=== PATIENT | male | born 1985 | race Caucasian/White ===

== ENCOUNTER 2018-07-19 10:39 | Emergency (ER) | payer SELFPAY ==
[~2018-07-19] VITALS: Ht 172.7 cm; Wt 81.8 kg
[~2018-07-19 10:39] MED LIST: ARIP15TA2 PO; DIPH50 PO
[2018-07-19 11:11] VITALS: BP 134/89
== END 2018-07-19 11:36 | disposition home or self-care (01) ==
LOC: EMS 10:41
DX: K64.4 Residual hemorrhoidal skin tags (principal); F31.9 Bipolar disorder, unspecified; F17.210 Nicotine dependence, cigarettes, uncomplicated; F12.90 Cannabis use, unspecified, uncomplicated; F19.90 Other psychoactive substance use, unspecified, uncomplicated

== ENCOUNTER 2019-08-03 12:03 | Inpatient (IN) | payer MEDICAID ==
[~2019-08-03] VITALS: Ht 185.4 cm; Wt 90.0 kg
[~2019-08-03 12:03] MED LIST changes: -ARIP15TA2 PO; +BENZ1TAB10 PO; +DIPH25 PO; -DIPH50 PO; +MIRT-89 PO
[2019-08-03 16:50] VITALS: BP 107/98
[2019-08-03] MEDS ORDERED: INFLUENZA VIRUS VACCINE QVS 2019-20 (3YR+)/PF 60 MCG/0.5 ML SYRINGE IM ONE (17:45)
[2019-08-03] MEDS: HALOPERIDOL 5 MG TABLET PO PRN (18:04)
[2019-08-03] MEDS: LORazepam 2 MG TABLET PO PRN (18:05)
[2019-08-03] MEDS: ZOLPIDEM TARTRATE 10 MG TABLET PO PRN (21:29)
[2019-08-04 05:52] VITALS: BP 105/89
[2019-08-04 08:11] VITALS: BP 110/60
[2019-08-04] MEDS ORDERED: DOCUSATE SODIUM 100 MG CAPSULE PO PRN (11:45)
[2019-08-04] MEDS ORDERED: PETROLATUM,WHITE 28 GM JELLY TP PRN (11:45)
[2019-08-04] MEDS ORDERED: MAG HYDROX/AL HYDROX/SIMETH ES 30 ML SUSPENSION UDCUP PO PRN (11:45)
[2019-08-04] MEDS ORDERED: ACETAMINOPHEN 325 MG TABLET PO PRN (11:45)
[2019-08-04] MEDS ORDERED: LOPERAMIDE HCL 2 MG CAPSULE PO PRN (11:45)
[2019-08-04] MEDS ORDERED: CloNIDine HCL 0.1 MG TABLET PO PRN (11:45)
[2019-08-04] MEDS ORDERED: GuaiFENesin/D-METHORPHAN [SUGAR-FREE] 200-20MG/10 ML SYRUP UDCUP PO PRN (11:45)
[2019-08-04] MEDS ORDERED: NICOTINE 14 MG/24 HOUR PATCH TD PRN (11:45)
[2019-08-04] MEDS ORDERED: MAGNESIUM HYDROXIDE SUSPENSION 30 ML UDCUP PO PRN (11:45)
[2019-08-04] MEDS ORDERED: IBUPROFEN 400 MG TABLET PO PRN (11:45)
[2019-08-04] MEDS ORDERED: ONDANSETRON HCL 4 MG TABLET PO PRN (11:45)
[2019-08-04] MEDS ORDERED: ALBUTEROL SULFATE HFA 90 MCG/PUFF 8 GM INHALER IH PRN (11:45)
[2019-08-04] MEDS: ARIPiprazole 10 MG TABLET PO SCH (14:11)
[2019-08-04 16:09] VITALS: BP 115/69
[2019-08-04] MEDS: HALOPERIDOL 5 MG TABLET PO PRN (16:22)
[2019-08-04] MEDS: LORazepam 2 MG TABLET PO PRN (16:22)
[2019-08-04] MEDS: DiphenhydrAMINE HCL 25 MG CAPSULE PO SCH (20:42)
[2019-08-04] MEDS: ZOLPIDEM TARTRATE 10 MG TABLET PO PRN (20:42)
[2019-08-05 06:30] VITALS: BP 113/67
[2019-08-05 08:02] LABS: BASOPHILS % (AUTO) 0.3 % (0.0-2.0); EOSINOPHILS % (AUTO) 0.7 % (1.0-6.0); HEMATOCRIT 47.2 % (41-53); HEMOGLOBIN 15.8 g/dL (13.5-17.5); LYMPHOCYTES # (AUTO) 1.4 K/uL (1.0-4.8); LYMPHOCYTES % (AUTO) 16.6 % (22.0-44.0); MEAN CORPUSCULAR HEMOGLOBIN 29.3 pg (26.0-34.0); MEAN CORPUSCULAR HGB CONC 33.4 G/dL (31.0-37.0); MEAN CORPUSCULAR VOLUME 88 fL (80-100); MONOCYTES # (AUTO) 0.6 K/uL (0.1-1.0); MONOCYTES % (AUTO) 7.4 % (2.0-9.0); NEUTROPHILS # (AUTO) 6.3 K/uL (1.8-7.7); PLATELET COUNT (AUTO) 259 K/uL (150-450); RED BLOOD CELL COUNT(AUTO) 5.37 MIL/uL (4.50-5.90); RED CELL DISTRIBUTION WIDTH 14.1 % (11.5-14.5)
[2019-08-05 09:04] LABS: ANION GAP 9 mmol/L (8-16); CARBON DIOXIDE 28 mmol/L (22-29); CHLORIDE 105 mmol/L (98-107); CREATININE 0.79 mg/dL (0.60-1.30); GLUCOSE,RANDOM 87 mg/dL (70-110); POTASSIUM 4.6 mmol/L (3.5-5.1); SODIUM SERUM 142 mmol/L (136-145); UREA NITROGEN, BLOOD 17 mg/dL (7-18)
[2019-08-05 09:05] LABS: ALANINE AMINOTRANSFERASE 41 U/L (12-78); ALBUMIN 4.2 g/dL (3.4-5.0); ALKALINE PHOSPHATASE 87 U/L (46-116); ASPARTATE AMINOTRANSFERASE 21 U/L (15-37); BILIRUBIN,TOTAL 0.3 mg/dL (0.1-1.0); CALCIUM, TOTAL 9.4 mg/dL (8.8-10.5); CHOL/HDL RATIO 4.4 (4.2-7.3); CHOLESTEROL 189 mg/dL (131-200); FREE T4 (FREE THYROXINE) 0.72 ng/dL (0.76-1.46); GLOMERULAR FILTR. RATE CALC > 60 mL/min (>60); HDL CHOLESTEROL 43 mg/dL (40-60); LDL CHOL (CALC.) 133 mg/dL (0-130); THYROID STIMULATING HORMONE 0.84 uIU/mL (0.36-3.74); TOTAL PROTEIN, SERUM 7.5 g/dL (6.4-8.2); TRIGLYCERIDES 66 mg/dL (15-150)
[2019-08-05] MEDS: BENZTROPINE MESYLATE 1 MG TABLET PO SCH ×2 (09:11→20:38)
[2019-08-05] MEDS: ARIPiprazole 10 MG TABLET PO SCH (09:11)
[2019-08-05] MEDS: HALOPERIDOL 5 MG TABLET PO PRN ×2 (12:13→20:38)
[2019-08-05] MEDS: LORazepam 2 MG TABLET PO PRN ×2 (12:13→20:38)
[2019-08-05 16:13] VITALS: BP 126/77
[2019-08-05] MEDS: DiphenhydrAMINE HCL 25 MG CAPSULE PO SCH (20:38)
[2019-08-06 06:22] VITALS: BP 122/85
[2019-08-06] MEDS: BENZTROPINE MESYLATE 1 MG TABLET PO SCH ×2 (09:26→21:13)
[2019-08-06] MEDS: ARIPiprazole 10 MG TABLET PO SCH (09:26)
[2019-08-06 09:31] VITALS: BP 102/80
[2019-08-06 16:51] VITALS: BP 139/80
[2019-08-06] MEDS: LORazepam 2 MG TABLET PO PRN (17:32)
[2019-08-06] MEDS: ZOLPIDEM TARTRATE 10 MG TABLET PO PRN (21:13)
[2019-08-06] MEDS: DiphenhydrAMINE HCL 25 MG CAPSULE PO SCH (21:13)
[2019-08-07 06:20] VITALS: BP 126/79
[2019-08-07] MEDS: BENZTROPINE MESYLATE 1 MG TABLET PO SCH ×2 (08:11→20:07)
[2019-08-07] MEDS: ARIPiprazole 10 MG TABLET PO SCH (08:11)
[2019-08-07 08:30] VITALS: BP 131/72
[2019-08-07 16:13] VITALS: BP 132/90
[2019-08-07] MEDS: LORazepam 2 MG TABLET PO PRN (17:48)
[2019-08-07] MEDS: DiphenhydrAMINE HCL 25 MG CAPSULE PO SCH (20:07)
[2019-08-07] MEDS: ZOLPIDEM TARTRATE 10 MG TABLET PO PRN (20:07)
[2019-08-08 05:35] VITALS: BP 128/76
[2019-08-08 08:06] VITALS: BP 122/66
[2019-08-08] MEDS: ARIPiprazole 10 MG TABLET PO SCH (08:30)
[2019-08-08] MEDS: BENZTROPINE MESYLATE 1 MG TABLET PO SCH ×2 (08:30→21:24)
[2019-08-08 16:08] VITALS: BP 143/74
[2019-08-08] MEDS: LORazepam 2 MG TABLET PO PRN (17:44)
[2019-08-08] MEDS: HALOPERIDOL 5 MG TABLET PO PRN (17:44)
[2019-08-08] MEDS: DiphenhydrAMINE HCL 25 MG CAPSULE PO SCH (21:24)
[2019-08-09 06:36] VITALS: BP 135/79
[2019-08-09 08:29] LABS: APPEARANCE,URINE CLEAR (CLEAR); BILIRUBIN,URINE NEGATIVE (NEGATIVE); GLUCOSE, URINE (UA) NEGATIVE (NEGATIVE); KETONES,URINE NEGATIVE (NEGATIVE); LEUKOCYTE ESTERASE ,URINE NEGATIVE (NEGATIVE); NITRATE,URINE NEGATIVE (NEGATIVE); OCCULT BLOOD,URINE NEGATIVE (NEGATIVE); PROTEIN,URINE NEGATIVE (NEGATIVE); UROBILINOGEN,URINE 0.2 mg/dL (<=1.0)
[2019-08-09] MEDS: ARIPiprazole 10 MG TABLET PO SCH (08:31)
[2019-08-09] MEDS: BENZTROPINE MESYLATE 1 MG TABLET PO SCH ×2 (08:31→20:55)
[2019-08-09 08:35] VITALS: BP 131/83
[2019-08-09 08:41] LABS: AMPHET/METH SCREEN,URINE NEGATIVE (NEGATIVE); BARBITURATE SCREEN, URINE NEGATIVE (NEGATIVE); BENZODIAZEPINES SCREEN,URINE NEGATIVE (NEGATIVE); CANNABINOID SCREEN,URINE NEGATIVE (NEGATIVE); COCAINE SCREEN,URINE NEGATIVE (NEGATIVE); METHADONE SCREEN, URINE NEGATIVE (NEGATIVE); OPIATE SCREEN,URINE NEGATIVE (NEGATIVE)
[2019-08-09 08:42] LABS: PHENCYCLIDINE SCREEN,URINE NEGATIVE (NEGATIVE)
[2019-08-09 16:39] VITALS: BP 109/72
[2019-08-09] MEDS: LORazepam 2 MG TABLET PO PRN (18:06)
[2019-08-09] MEDS: HALOPERIDOL 5 MG TABLET PO PRN (18:06)
[2019-08-09] MEDS: DiphenhydrAMINE HCL 25 MG CAPSULE PO SCH (20:55)
[2019-08-09] MEDS: ZOLPIDEM TARTRATE 10 MG TABLET PO PRN (20:56)
[2019-08-10 06:19] VITALS: BP 100/59
[2019-08-10 08:14] VITALS: BP 110/68
[2019-08-10] MEDS: ARIPiprazole 10 MG TABLET PO SCH (13:13)
[2019-08-10] MEDS: BENZTROPINE MESYLATE 1 MG TABLET PO SCH ×2 (13:14→20:28)
[2019-08-10 16:20] VITALS: BP 136/74
[2019-08-10] MEDS: HALOPERIDOL 5 MG TABLET PO PRN (16:32)
[2019-08-10] MEDS: LORazepam 2 MG TABLET PO PRN (16:32)
[2019-08-10] MEDS: DiphenhydrAMINE HCL 25 MG CAPSULE PO SCH (20:28)
[2019-08-10] MEDS: ZOLPIDEM TARTRATE 10 MG TABLET PO PRN (20:28)
[2019-08-11 05:23] VITALS: BP 98/65
[2019-08-11] MEDS: BENZTROPINE MESYLATE 1 MG TABLET PO SCH ×2 (09:22→20:19)
[2019-08-11] MEDS: ARIPiprazole 10 MG TABLET PO SCH (09:22)
[2019-08-11 09:25] VITALS: BP 103/57
[2019-08-11] MEDS: HALOPERIDOL 5 MG TABLET PO PRN (16:05)
[2019-08-11] MEDS: LORazepam 2 MG TABLET PO PRN (16:05)
[2019-08-11 17:17] VITALS: BP 126/82
[2019-08-11] MEDS: DiphenhydrAMINE HCL 25 MG CAPSULE PO SCH (20:19)
[2019-08-11] MEDS: ZOLPIDEM TARTRATE 10 MG TABLET PO PRN (20:19)
[2019-08-12 04:26] VITALS: BP 104/60
[2019-08-12 08:08] VITALS: BP 114/64
[2019-08-12] MEDS: BENZTROPINE MESYLATE 1 MG TABLET PO SCH (08:33)
[2019-08-12] MEDS: ARIPiprazole 10 MG TABLET PO SCH (08:33)
[2019-08-12] MEDS ORDERED: DIPH25CA85 PO (09:32)
[2019-08-12] MEDS ORDERED: BENZ1TAB10 PO (09:32)
[2019-08-12] MEDS ORDERED: ARIP10TA8 PO (09:32)
== END 2019-08-12 10:44 | disposition home or self-care (01) | DRG 750 ==
LOC: B3A 16:05
DX: F20.0 Paranoid schizophrenia (principal); F10.10 Alcohol abuse, uncomplicated; F15.10 Other stimulant abuse, uncomplicated; Z79.899 Other long term (current) drug therapy; R10.13 Epigastric pain; Z28.21 Immunization not carried out because of patient refusal
CPT/HCPCS: 80307; 83036; 84439; 84443

== ENCOUNTER 2019-08-13 11:56 | Inpatient (IN) | payer MEDICAID, OTHER ==
[~2019-08-13] VITALS: Ht 167.6 cm; Wt 91.2 kg
[~2019-08-13 11:56] MED LIST changes: +ARIP10TA8 PO; -DIPH25 PO; +DIPH25CA85 PO; -MIRT-89 PO
[2019-08-13 12:53] LABS: BASOPHILS % (AUTO) 0.8 % (0.0-2.0); EOSINOPHILS % (AUTO) 0.3 % (1.0-6.0); HEMATOCRIT 50.3 % (41-53); HEMOGLOBIN 16.6 g/dL (13.5-17.5); LYMPHOCYTES # (AUTO) 1.8 K/uL (1.0-4.8); LYMPHOCYTES % (AUTO) 16.9 % (22.0-44.0); MEAN CORPUSCULAR HEMOGLOBIN 28.9 pg (26.0-34.0); MEAN CORPUSCULAR VOLUME 88 fL (80-100); MONOCYTES # (AUTO) 1.1 K/uL (0.1-1.0); MONOCYTES % (AUTO) 9.8 % (2.0-9.0); NEUTROPHILS # (AUTO) 7.9 K/uL (1.8-7.7); NEUTROPHILS % (AUTO) 72.2 % (40.0-70.0); PLATELET COUNT (AUTO) 293 K/uL (150-450); RED BLOOD CELL COUNT(AUTO) 5.74 MIL/uL (4.50-5.90); RED CELL DISTRIBUTION WIDTH 13.1 % (11.5-14.5)
[2019-08-13 13:13] LABS: AMPHET/METH SCREEN,URINE POSITIVE (NEGATIVE); BARBITURATE SCREEN, URINE NEGATIVE (NEGATIVE); BENZODIAZEPINES SCREEN,URINE NEGATIVE (NEGATIVE); CANNABINOID SCREEN,URINE NEGATIVE (NEGATIVE); COCAINE SCREEN,URINE NEGATIVE (NEGATIVE); METHADONE SCREEN, URINE NEGATIVE (NEGATIVE); OPIATE SCREEN,URINE NEGATIVE (NEGATIVE)
[2019-08-13 13:16] LABS: PHENCYCLIDINE SCREEN,URINE NEGATIVE (NEGATIVE)
[2019-08-13 13:25] LABS: ANION GAP 13 mmol/L (8-16); CALCIUM, TOTAL 9.4 mg/dL (8.8-10.5); CARBON DIOXIDE 25 mmol/L (22-29); CHLORIDE 103 mmol/L (98-107); CREATININE 0.66 mg/dL (0.60-1.30); GLOMERULAR FILTR. RATE CALC > 60 mL/min (>60); GLUCOSE,RANDOM 83 mg/dL (70-110); POTASSIUM 3.7 mmol/L (3.5-5.1); SODIUM SERUM 141 mmol/L (136-145); UREA NITROGEN, BLOOD 10 mg/dL (7-18)
[2019-08-13] MEDS ORDERED: LORazepam 2 MG TABLET PO ONE (13:30)
[2019-08-13] MEDS ORDERED: HALOPERIDOL 5 MG TABLET PO ONE (13:30)
[2019-08-13 13:31] LABS: ALANINE AMINOTRANSFERASE 75 U/L (12-78); ALBUMIN 4.9 g/dL (3.4-5.0); ALKALINE PHOSPHATASE 100 U/L (46-116); ASPARTATE AMINOTRANSFERASE 133 U/L (15-37); BILIRUBIN,TOTAL 0.6 mg/dL (0.1-1.0); TOTAL PROTEIN, SERUM 8.6 g/dL (6.4-8.2)
[2019-08-13] MEDS ORDERED: IBUPROFEN 600 MG TABLET PO ONE (14:00)
[2019-08-13 17:35] VITALS: BP 108/64
[2019-08-13] MEDS ORDERED: NICOTINE 7 MG/24 HOUR PATCH TD PRN (18:30)
[2019-08-13 18:35] VITALS: BP 111/65
[2019-08-13 19:01] VITALS: BP 108/64
[2019-08-13 19:35] VITALS: BP 134/82
[2019-08-13 20:35] VITALS: BP 121/86
[2019-08-13] MEDS: DiphenhydrAMINE HCL 25 MG CAPSULE PO SCH (20:59)
[2019-08-13] MEDS: BENZTROPINE MESYLATE 1 MG TABLET PO SCH (20:59)
[2019-08-13] MEDS ORDERED: ARIPiprazole 10 MG TABLET PO SCH (21:00)
[2019-08-14] VITALS (8 sets, daily range): BP systolic 98–122; BP diastolic 61–75
[2019-08-14] MEDS ORDERED: MAGNESIUM HYDROXIDE SUSPENSION 30 ML UDCUP PO PRN (08:30)
[2019-08-14] MEDS ORDERED: ONDANSETRON HCL 4 MG TABLET PO PRN (08:30)
[2019-08-14] MEDS ORDERED: LOPERAMIDE HCL 2 MG CAPSULE PO PRN (08:30)
[2019-08-14] MEDS ORDERED: MAG HYDROX/AL HYDROX/SIMETH ES 30 ML SUSPENSION UDCUP PO PRN (08:30)
[2019-08-14] MEDS ORDERED: DOCUSATE SODIUM 100 MG CAPSULE PO PRN (08:30)
[2019-08-14] MEDS ORDERED: ALBUTEROL SULFATE HFA 90 MCG/PUFF 8 GM INHALER IH PRN (08:30)
[2019-08-14] MEDS ORDERED: GuaiFENesin/D-METHORPHAN [SUGAR-FREE] 200-20MG/10 ML SYRUP UDCUP PO PRN (08:30)
[2019-08-14] MEDS ORDERED: NICOTINE 14 MG/24 HOUR PATCH TD PRN (08:30)
[2019-08-14] MEDS ORDERED: ACETAMINOPHEN 325 MG TABLET PO PRN (08:30)
[2019-08-14] MEDS ORDERED: CloNIDine HCL 0.1 MG TABLET PO PRN (08:30)
[2019-08-14] MEDS ORDERED: PETROLATUM,WHITE 28 GM JELLY TP PRN (08:30)
[2019-08-14] MEDS ORDERED: IBUPROFEN 400 MG TABLET PO PRN (08:30)
[2019-08-14] MEDS: BENZTROPINE MESYLATE 1 MG TABLET PO SCH ×2 (08:57→20:18)
[2019-08-14] MEDS: HALOPERIDOL 5 MG TABLET PO PRN (17:41)
[2019-08-14] MEDS: LORazepam 2 MG TABLET PO PRN (17:41)
[2019-08-14] MEDS: ARIPiprazole 15 MG TABLET PO SCH (20:18)
[2019-08-14] MEDS: DiphenhydrAMINE HCL 25 MG CAPSULE PO SCH (20:18)
[2019-08-14] MEDS: ZOLPIDEM TARTRATE 10 MG TABLET PO PRN (20:19)
[2019-08-15] VITALS: BP 106/67
[2019-08-15] MEDS: BENZTROPINE MESYLATE 1 MG TABLET PO SCH ×2 (09:01→20:36)
[2019-08-15] MEDS: LORazepam 2 MG TABLET PO PRN ×2 (09:01→16:28)
[2019-08-15 12:26] VITALS: BP 113/65
[2019-08-15 16:22] VITALS: BP 129/66
[2019-08-15] MEDS: HALOPERIDOL 5 MG TABLET PO PRN (16:28)
[2019-08-15] MEDS: DiphenhydrAMINE HCL 25 MG CAPSULE PO SCH (20:36)
[2019-08-15] MEDS: ZOLPIDEM TARTRATE 10 MG TABLET PO PRN (20:36)
[2019-08-15] MEDS: ARIPiprazole 15 MG TABLET PO SCH (20:36)
[2019-08-16] MEDS: BENZTROPINE MESYLATE 1 MG TABLET PO SCH ×2 (08:46→20:55)
[2019-08-16 16:17] VITALS: BP 122/73
[2019-08-16] MEDS: LORazepam 2 MG TABLET PO PRN (16:57)
[2019-08-16] MEDS: HALOPERIDOL 5 MG TABLET PO PRN (18:18)
[2019-08-16] MEDS: ARIPiprazole 15 MG TABLET PO SCH (20:54)
[2019-08-16] MEDS: DiphenhydrAMINE HCL 25 MG CAPSULE PO SCH (20:55)
[2019-08-17 05:29] VITALS: BP 111/65
[2019-08-17 08:33] VITALS: BP 131/79
[2019-08-17 08:34] VITALS: BP 131/79
[2019-08-17] MEDS: BENZTROPINE MESYLATE 1 MG TABLET PO SCH ×2 (08:47→20:46)
[2019-08-17 16:00] VITALS: BP 121/70
[2019-08-17 16:05] VITALS: BP 121/70
[2019-08-17] MEDS: LORazepam 2 MG TABLET PO PRN (17:16)
[2019-08-17 19:56] VITALS: BP 116/61
[2019-08-17] MEDS: DiphenhydrAMINE HCL 25 MG CAPSULE PO SCH (20:46)
[2019-08-17] MEDS: ARIPiprazole 15 MG TABLET PO SCH (20:46)
[2019-08-17] MEDS: ZOLPIDEM TARTRATE 10 MG TABLET PO PRN (20:46)
[2019-08-18 04:54] VITALS: BP 115/72
[2019-08-18 06:13] VITALS: BP 115/72
[2019-08-18 08:08] VITALS: BP 123/67
[2019-08-18] MEDS: BENZTROPINE MESYLATE 1 MG TABLET PO SCH ×2 (08:33→20:51)
[2019-08-18 16:00] VITALS: BP 117/77
[2019-08-18 16:04] VITALS: BP 117/77
[2019-08-18] MEDS: ARIPiprazole 15 MG TABLET PO SCH (20:51)
[2019-08-18] MEDS: ZOLPIDEM TARTRATE 10 MG TABLET PO PRN (20:51)
[2019-08-18] MEDS: DiphenhydrAMINE HCL 25 MG CAPSULE PO SCH (20:51)
[2019-08-19 02:30] VITALS: BP 99/76
[2019-08-19 04:30] VITALS: BP 99/76
[2019-08-19 04:32] VITALS: BP 99/76
[2019-08-19] MEDS: BENZTROPINE MESYLATE 1 MG TABLET PO SCH ×2 (08:07→20:32)
[2019-08-19 08:12] VITALS: BP 115/65
[2019-08-19 08:27] VITALS: BP 115/65
[2019-08-19 16:12] VITALS: BP 126/74
[2019-08-19] MEDS: LORazepam 2 MG TABLET PO PRN (16:18)
[2019-08-19] MEDS: HALOPERIDOL 5 MG TABLET PO PRN (16:18)
[2019-08-19] MEDS: ARIPiprazole 15 MG TABLET PO SCH (20:32)
[2019-08-19] MEDS: DiphenhydrAMINE HCL 25 MG CAPSULE PO SCH (20:32)
[2019-08-19] MEDS: ZOLPIDEM TARTRATE 10 MG TABLET PO PRN (20:32)
[2019-08-20 06:00] VITALS: BP 124/97
[2019-08-20 08:35] VITALS: BP 90/56
[2019-08-20] MEDS: BENZTROPINE MESYLATE 1 MG TABLET PO SCH ×2 (08:43→20:56)
[2019-08-20] MEDS: HALOPERIDOL 5 MG TABLET PO PRN (16:10)
[2019-08-20] MEDS: LORazepam 2 MG TABLET PO PRN (16:10)
[2019-08-20 17:33] VITALS: BP 106/70
[2019-08-20] MEDS: DiphenhydrAMINE HCL 25 MG CAPSULE PO SCH (20:56)
[2019-08-20] MEDS: ARIPiprazole 15 MG TABLET PO SCH (20:56)
[2019-08-20] MEDS: ZOLPIDEM TARTRATE 10 MG TABLET PO PRN (20:56)
[2019-08-21 06:21] VITALS: BP 118/78
[2019-08-21 08:27] VITALS: BP 121/76
[2019-08-21] MEDS: MULTIVITAMINS WITH MINERALS, THERAPEUTIC TABLET PO SCH (08:35)
[2019-08-21] MEDS: LORazepam 2 MG TABLET PO PRN ×2 (08:35→17:14)
[2019-08-21] MEDS: BENZTROPINE MESYLATE 1 MG TABLET PO SCH ×2 (08:35→20:05)
[2019-08-21 17:03] VITALS: BP 103/62
[2019-08-21] MEDS: DiphenhydrAMINE HCL 25 MG CAPSULE PO SCH (20:05)
[2019-08-21] MEDS: ARIPiprazole 15 MG TABLET PO SCH (20:05)
[2019-08-22 08:13] VITALS: BP 108/64
[2019-08-22] MEDS: MULTIVITAMINS WITH MINERALS, THERAPEUTIC TABLET PO SCH (08:32)
[2019-08-22] MEDS: BENZTROPINE MESYLATE 1 MG TABLET PO SCH ×2 (08:32→21:36)
[2019-08-22] MEDS: LORazepam 2 MG TABLET PO PRN ×2 (08:32→16:18)
[2019-08-22 16:10] VITALS: BP 112/66
[2019-08-22] MEDS: HALOPERIDOL 5 MG TABLET PO PRN (16:18)
[2019-08-22] MEDS: DiphenhydrAMINE HCL 25 MG CAPSULE PO SCH (21:36)
[2019-08-22] MEDS: ARIPiprazole 15 MG TABLET PO SCH (21:36)
[2019-08-22] MEDS: ZOLPIDEM TARTRATE 10 MG TABLET PO PRN (21:36)
[2019-08-23 06:07] VITALS: BP 106/63
[2019-08-23] MEDS: BENZTROPINE MESYLATE 1 MG TABLET PO SCH ×2 (08:27→20:56)
[2019-08-23] MEDS: MULTIVITAMINS WITH MINERALS, THERAPEUTIC TABLET PO SCH (08:27)
[2019-08-23 16:06] VITALS: BP 130/71
[2019-08-23] MEDS: HALOPERIDOL 5 MG TABLET PO PRN (16:23)
[2019-08-23] MEDS: LORazepam 2 MG TABLET PO PRN (16:23)
[2019-08-23] MEDS: ZOLPIDEM TARTRATE 10 MG TABLET PO PRN (20:56)
[2019-08-23] MEDS: DiphenhydrAMINE HCL 25 MG CAPSULE PO SCH (20:56)
[2019-08-23] MEDS: ARIPiprazole 10 MG TABLET PO SCH (20:56)
[2019-08-24 08:08] VITALS: BP 106/67
[2019-08-24] MEDS: BENZTROPINE MESYLATE 1 MG TABLET PO SCH ×2 (08:17→20:30)
[2019-08-24] MEDS: MULTIVITAMINS WITH MINERALS, THERAPEUTIC TABLET PO SCH (08:18)
[2019-08-24] MEDS: LORazepam 2 MG TABLET PO PRN ×2 (08:18→20:30)
[2019-08-24 16:05] VITALS: BP 138/76
[2019-08-24] MEDS: ZOLPIDEM TARTRATE 10 MG TABLET PO PRN (20:30)
[2019-08-24] MEDS: DiphenhydrAMINE HCL 25 MG CAPSULE PO SCH (20:30)
[2019-08-24] MEDS: ARIPiprazole 10 MG TABLET PO SCH (20:30)
[2019-08-25 05:05] VITALS: BP 128/72
[2019-08-25 08:21] VITALS: BP 125/72
[2019-08-25] MEDS: MULTIVITAMINS WITH MINERALS, THERAPEUTIC TABLET PO SCH (08:46)
[2019-08-25] MEDS: BENZTROPINE MESYLATE 1 MG TABLET PO SCH ×2 (08:46→20:34)
[2019-08-25] MEDS: LORazepam 2 MG TABLET PO PRN ×2 (14:58→20:34)
[2019-08-25] MEDS: HALOPERIDOL 5 MG TABLET PO PRN (16:12)
[2019-08-25 16:36] VITALS: BP 119/72
[2019-08-25] MEDS: ARIPiprazole 10 MG TABLET PO SCH (20:34)
[2019-08-25] MEDS: ZOLPIDEM TARTRATE 10 MG TABLET PO PRN (20:34)
[2019-08-25] MEDS: DiphenhydrAMINE HCL 25 MG CAPSULE PO SCH (20:34)
[2019-08-26] MEDS: BENZTROPINE MESYLATE 1 MG TABLET PO SCH ×2 (08:58→20:58)
[2019-08-26] MEDS: MULTIVITAMINS WITH MINERALS, THERAPEUTIC TABLET PO SCH (08:58)
[2019-08-26 09:26] VITALS: BP 108/72
[2019-08-26 16:05] VITALS: BP 120/81
[2019-08-26] MEDS: LORazepam 2 MG TABLET PO PRN (16:56)
[2019-08-26] MEDS: ARIPiprazole 10 MG TABLET PO SCH (20:58)
[2019-08-26] MEDS: DiphenhydrAMINE HCL 25 MG CAPSULE PO SCH (20:58)
[2019-08-27 06:29] VITALS: BP 100/58
[2019-08-27 08:00] VITALS: BP 107/73
[2019-08-27] MEDS: BENZTROPINE MESYLATE 1 MG TABLET PO SCH ×2 (08:30→21:13)
[2019-08-27] MEDS: MULTIVITAMINS WITH MINERALS, THERAPEUTIC TABLET PO SCH (08:31)
[2019-08-27 16:03] VITALS: BP 109/59
[2019-08-27] MEDS: LORazepam 2 MG TABLET PO PRN (16:51)
[2019-08-27] MEDS: DiphenhydrAMINE HCL 25 MG CAPSULE PO SCH (21:13)
[2019-08-27] MEDS: ARIPiprazole 10 MG TABLET PO SCH (21:13)
[2019-08-27] MEDS: ZOLPIDEM TARTRATE 10 MG TABLET PO PRN (21:14)
[2019-08-28 06:28] VITALS: BP 115/76
[2019-08-28 08:35] VITALS: BP 143/59
[2019-08-28] MEDS: BENZTROPINE MESYLATE 1 MG TABLET PO SCH ×2 (09:08→20:32)
[2019-08-28] MEDS: MULTIVITAMINS WITH MINERALS, THERAPEUTIC TABLET PO SCH (09:08)
[2019-08-28 16:14] VITALS: BP 114/74
[2019-08-28] MEDS: LORazepam 2 MG TABLET PO PRN (16:36)
[2019-08-28] MEDS: HALOPERIDOL 5 MG TABLET PO PRN (16:36)
[2019-08-28] MEDS: ARIPiprazole 10 MG TABLET PO SCH (20:32)
[2019-08-28] MEDS: DiphenhydrAMINE HCL 25 MG CAPSULE PO SCH (20:32)
[2019-08-28] MEDS: ZOLPIDEM TARTRATE 10 MG TABLET PO PRN (20:33)
[2019-08-29 06:53] VITALS: BP 106/61
[2019-08-29 08:28] VITALS: BP 105/68
[2019-08-29] MEDS: MULTIVITAMINS WITH MINERALS, THERAPEUTIC TABLET PO SCH (09:38)
[2019-08-29] MEDS: BENZTROPINE MESYLATE 1 MG TABLET PO SCH ×2 (09:38→20:24)
[2019-08-29 16:05] VITALS: BP 132/84
[2019-08-29] MEDS: LORazepam 2 MG TABLET PO PRN (16:08)
[2019-08-29] MEDS: HALOPERIDOL 5 MG TABLET PO PRN (16:09)
[2019-08-29] MEDS: ARIPiprazole 10 MG TABLET PO SCH (20:24)
[2019-08-29] MEDS: ZOLPIDEM TARTRATE 10 MG TABLET PO PRN (20:24)
[2019-08-29] MEDS: DiphenhydrAMINE HCL 25 MG CAPSULE PO SCH (20:24)
[2019-08-30 05:32] VITALS: BP 100/64
[2019-08-30 08:28] VITALS: BP 109/52
[2019-08-30] MEDS ORDERED: ARIP10TA8 PO (08:35)
[2019-08-30] MEDS ORDERED: BENZ1TAB10 PO (08:35)
[2019-08-30] MEDS: MULTIVITAMINS WITH MINERALS, THERAPEUTIC TABLET PO SCH (08:40)
[2019-08-30] MEDS: BENZTROPINE MESYLATE 1 MG TABLET PO SCH (08:40)
== END 2019-08-30 16:28 | disposition home or self-care (01) | DRG 750 ==
LOC: EMS 11:59 → B3A 16:10
DX: F20.0 Paranoid schizophrenia (principal); I95.9 Hypotension, unspecified; R74.0 Nonspecific elevation of levels of transaminase and lactic acid dehydrogenase [LDH]; F10.10 Alcohol abuse, uncomplicated; F15.10 Other stimulant abuse, uncomplicated; F31.9 Bipolar disorder, unspecified; Y90.5 Blood alcohol level of 100-119 mg/100 ml; Z79.899 Other long term (current) drug therapy; F12.90 Cannabis use, unspecified, uncomplicated
CPT/HCPCS: 84443; G0480

== ENCOUNTER 2021-08-05 19:13 | Emergency (ER) | payer MEDICAID, OTHER ==
[~2021-08-05] VITALS: Ht 172.7 cm; Wt 84.1 kg
[~2021-08-05 19:13] MED LIST changes: +ARIP10TA38 PO; -ARIP10TA8 PO; -BENZ1TAB10 PO; +BENZ1TAB96 PO; -DIPH25CA85 PO
[2021-08-05 20:03] VITALS: BP 132/97
[2021-08-05] MEDS ORDERED: DiphenhydrAMINE HCL 50 MG/ML VIAL IVP ONE (20:15)
== END 2021-08-05 20:49 | disposition home or self-care (01) ==
LOC: EMS 19:20
DX: G25.9 Extrapyramidal and movement disorder, unspecified (principal); F31.9 Bipolar disorder, unspecified; F20.9 Schizophrenia, unspecified; F17.210 Nicotine dependence, cigarettes, uncomplicated; F12.90 Cannabis use, unspecified, uncomplicated; F15.90 Other stimulant use, unspecified, uncomplicated
CPT/HCPCS: 96374; 99283; J1200

== ENCOUNTER 2021-09-06 12:17 | Emergency (ER) | payer OTHER ==
[~2021-09-06] VITALS: Ht 177.8 cm; Wt 92.1 kg
[2021-09-06 13:15] LABS: ACETAMINOPHEN < 2 mcg/mL (10-30)
[2021-09-06] MEDS ORDERED: ONDANSETRON HCL 4 MG/2 ML VIAL IVP ONE (13:15)
[2021-09-06] MEDS ORDERED: SODIUM CHLORIDE 0.9% 1,000 ML IV ONE (13:15)
[2021-09-06 13:19] LABS: SALICYLATE 1.4 mg/dL (2.8-20.0)
[2021-09-06 14:59] VITALS: BP 132/86
[2021-09-06 16:03] LABS: AMPHET/METH SCREEN,URINE NEGATIVE (NEGATIVE); BARBITURATE SCREEN, URINE NEGATIVE (NEGATIVE); BENZODIAZEPINES SCREEN,URINE NEGATIVE (NEGATIVE); CANNABINOID SCREEN,URINE POSITIVE (NEGATIVE); COCAINE SCREEN,URINE NEGATIVE (NEGATIVE); METHADONE SCREEN, URINE NEGATIVE (NEGATIVE); OPIATE SCREEN,URINE NEGATIVE (NEGATIVE)
[2021-09-06 16:05] LABS: PHENCYCLIDINE SCREEN,URINE NEGATIVE (NEGATIVE)
== END 2021-09-06 16:30 | disposition home or self-care (01) ==
LOC: EMS 12:17
DX: T40.411A Poisoning by fentanyl or fentanyl analogs, accidental (unintentional), initial encounter (principal); F32.A Depression, unspecified; F17.210 Nicotine dependence, cigarettes, uncomplicated; F15.90 Other stimulant use, unspecified, uncomplicated; F11.90 Opioid use, unspecified, uncomplicated; Y92.89 Other specified places as the place of occurrence of the external cause
CPT/HCPCS: 36415; 80307; 96361; 96374; 99283; G0480; J2405; J7030; G0481

== ENCOUNTER 2021-12-30 09:35 | Emergency (ER) | payer OTHER ==
[~2021-12-30] VITALS: Ht 172.7 cm; Wt 84.1 kg
[2021-12-30] MEDS ORDERED: DiphenhydrAMINE HCL 50 MG/ML VIAL IVP ONE (09:45)
[2021-12-30 09:54] VITALS: BP 140/80
== END 2021-12-30 10:32 | disposition home or self-care (01) ==
LOC: EMS 09:35
DX: G25.9 Extrapyramidal and movement disorder, unspecified (principal); F32.A Depression, unspecified; F17.210 Nicotine dependence, cigarettes, uncomplicated; F19.90 Other psychoactive substance use, unspecified, uncomplicated; Z72.89 Other problems related to lifestyle
CPT/HCPCS: 99283; 96374; J1200

== ENCOUNTER 2022-02-08 12:11 | Emergency (ER) | payer OTHER ==
[~2022-02-08] VITALS: Ht 175.3 cm; Wt 81.8 kg
[2022-02-08] MEDS ORDERED: DiphenhydrAMINE HCL 50 MG/ML VIAL IVP ONE (12:15)
[2022-02-08 13:36] VITALS: BP 136/85
== END 2022-02-08 13:38 | disposition home or self-care (01) ==
LOC: EMS 12:12
DX: G25.9 Extrapyramidal and movement disorder, unspecified (principal); M27.9 Disease of jaws, unspecified; F32.A Depression, unspecified; F17.210 Nicotine dependence, cigarettes, uncomplicated; F10.90 Alcohol use, unspecified, uncomplicated; F15.90 Other stimulant use, unspecified, uncomplicated
CPT/HCPCS: 99283; 96374; J1200

== ENCOUNTER 2022-05-04 09:13 | Emergency (ER) | payer OTHER ==
[~2022-05-04] VITALS: Ht 172.7 cm; Wt 90.9 kg
[2022-05-04 09:15] VITALS: BP 152/97
[2022-05-04] MEDS ORDERED: DIPH25CA85 PO (09:21)
[2022-05-04] MEDS ORDERED: AMOX250C4 PO (09:38)
== END 2022-05-04 09:55 | disposition home or self-care (01) ==
LOC: EMS 09:16
DX: G25.9 Extrapyramidal and movement disorder, unspecified (principal); K02.9 Dental caries, unspecified; F32.A Depression, unspecified; F17.210 Nicotine dependence, cigarettes, uncomplicated; F15.90 Other stimulant use, unspecified, uncomplicated; F19.90 Other psychoactive substance use, unspecified, uncomplicated
CPT/HCPCS: 99283; Z7502

== ENCOUNTER 2022-06-21 10:06 | Emergency (ER) | payer OTHER ==
[~2022-06-21] VITALS: Ht 172.7 cm; Wt 84.1 kg
[~2022-06-21 10:06] MED LIST changes: +AMOX250C4 PO; -BENZ1TAB96 PO; +DIPH25CA85 PO
[2022-06-21] MEDS ORDERED: DiphenhydrAMINE HCL 50 MG CAPSULE PO ONE (12:15)
[2022-06-21 13:47] VITALS: BP 141/86
== END 2022-06-21 13:51 | disposition home or self-care (01) ==
LOC: EMS 10:10
DX: G25.9 Extrapyramidal and movement disorder, unspecified (principal); F32.A Depression, unspecified; F17.210 Nicotine dependence, cigarettes, uncomplicated; F10.90 Alcohol use, unspecified, uncomplicated; F19.90 Other psychoactive substance use, unspecified, uncomplicated; F15.90 Other stimulant use, unspecified, uncomplicated
CPT/HCPCS: 99282; Z7502; Z7610

== ENCOUNTER 2022-08-08 12:14 | Emergency (ER) | payer OTHER ==
[~2022-08-08] VITALS: Ht 177.8 cm; Wt 96.4 kg
[2022-08-08] MEDS ORDERED: MethylPREDNISolone SOD SUCC 125 MG/2 ML VIAL IVP ONE (13:00)
[2022-08-08] MEDS ORDERED: FAMOTIDINE 10 MG/ML 2 ML VIAL IVP ONE (13:00)
[2022-08-08] MEDS ORDERED: EPIN0.3P3 IM (13:56)
[2022-08-08 14:31] VITALS: BP 138/81
== END 2022-08-08 14:33 | disposition home or self-care (01) ==
LOC: EMS 12:14
DX: T78.40XA Allergy, unspecified, initial encounter (principal); F15.10 Other stimulant abuse, uncomplicated; F32.A Depression, unspecified; F17.210 Nicotine dependence, cigarettes, uncomplicated; F12.90 Cannabis use, unspecified, uncomplicated; X58.XXXA Exposure to other specified factors, initial encounter
CPT/HCPCS: 99284; 96374; 96375; J3490; J2930

== ENCOUNTER 2022-08-26 09:49 | Emergency (ER) | payer OTHER ==
[~2022-08-26] VITALS: Ht 175.3 cm; Wt 100.0 kg
[~2022-08-26 09:49] MED LIST changes: -AMOX250C4 PO; -ARIP10TA38 PO; -DIPH25CA85 PO; +EPIN0.3P3 IM
[2022-08-26] MEDS ORDERED: VALB80CA PO (11:26)
[2022-08-26] MEDS ORDERED: DIPH50CA35 PO (11:26)
[2022-08-26] MEDS ORDERED: ARIP300S IM (11:26)
[2022-08-26] MEDS ORDERED: DiphenhydrAMINE HCL 50 MG/ML VIAL IM ONE (11:30)
[2022-08-26 13:07] VITALS: BP 154/92
== END 2022-08-26 13:08 | disposition home or self-care (01) ==
LOC: EMS 09:52
DX: G25.89 Other specified extrapyramidal and movement disorders (principal); F15.10 Other stimulant abuse, uncomplicated; F32.A Depression, unspecified; F17.210 Nicotine dependence, cigarettes, uncomplicated; F12.90 Cannabis use, unspecified, uncomplicated; F11.90 Opioid use, unspecified, uncomplicated
CPT/HCPCS: 99283; 96372; J1200

== ENCOUNTER 2023-04-03 10:12 | Emergency (ER) | payer OTHER ==
[~2023-04-03] VITALS: Ht 172.7 cm; Wt 100.0 kg
[~2023-04-03 10:12] MED LIST changes: +ARIP300S IM; +DIPH50CA35 PO; +VALB80CA PO
[2023-04-03 11:17] VITALS: BP 130/51; PULSE 92; RESP 18; TEMP 98.2
[2023-04-03] MEDS ORDERED: DiphenhydrAMINE HCL 50 MG/ML VIAL IVP ONE (11:30)
[2023-04-03] MEDS ORDERED: DIPH25CA85 PO (12:30)
== END 2023-04-03 12:41 | disposition home or self-care (01) ==
LOC: EMS 10:18
DX: G25.9 Extrapyramidal and movement disorder, unspecified (principal); F15.10 Other stimulant abuse, uncomplicated; F32.A Depression, unspecified; F17.210 Nicotine dependence, cigarettes, uncomplicated; F12.90 Cannabis use, unspecified, uncomplicated; F10.90 Alcohol use, unspecified, uncomplicated; Y90.9 Presence of alcohol in blood, level not specified
CPT/HCPCS: 99283; 96374; J1200

== ENCOUNTER 2023-04-12 08:31 | Emergency (ER) | payer OTHER ==
[~2023-04-12] VITALS: Ht 170.2 cm; Wt 77.3 kg
[~2023-04-12 08:31] MED LIST changes: -ARIP300S IM; +DIPH25CA85 PO; -DIPH50CA35 PO; -EPIN0.3P3 IM; -VALB80CA PO
[2023-04-12 08:42] VITALS: BP 119/87; PULSE 87; RESP 16; TEMP 98.1
[2023-04-12] MEDS ORDERED: LORazepam 2 MG/ML VIAL IVP ONE (08:45)
[2023-04-12] MEDS ORDERED: DiphenhydrAMINE HCL 50 MG/ML VIAL IVP ONE (08:45)
== END 2023-04-12 10:52 | disposition home or self-care (01) ==
LOC: EMS 08:32
DX: G24.02 Drug induced acute dystonia (principal); F15.10 Other stimulant abuse, uncomplicated; F32.A Depression, unspecified; F17.210 Nicotine dependence, cigarettes, uncomplicated; F10.90 Alcohol use, unspecified, uncomplicated; F12.90 Cannabis use, unspecified, uncomplicated
CPT/HCPCS: 96374; 96375; 99284; Z7502

== ENCOUNTER 2024-12-16 21:49 | Inpatient (IN) | payer MEDICAID, OTHER ==
[~2024-12-16] VITALS: Ht 175.3 cm; Wt 83.9 kg
[2024-12-16 22:36] LABS: COVID AG,FIA SOURCE NASAL SWAB
[2024-12-16 22:46] LABS: PLATELET COUNT (AUTO) 255 K/uL (150-450); RED BLOOD CELL COUNT(AUTO) 4.81 MIL/uL (4.50-5.90); RED CELL DISTRIBUTION WIDTH 13.3 % (11.5-14.5); WHITE BLOOD COUNT (AUTO) 8.7 K/uL (4.5-11.0)
[2024-12-16 22:57] LABS: CALCIUM, TOTAL 8.1 mg/dL (8.8-10.5); CREATININE 0.79 mg/dL (0.60-1.30); GLOMERULAR FILTR. RATE CALC > 60 mL/min (>60); GLUCOSE,RANDOM 123 mg/dL (70-110); SODIUM SERUM 142 mmol/L (136-145); UREA NITROGEN, BLOOD 27 mg/dL (7-18)
[2024-12-16 22:58] LABS: SARS-COV2 (COVID) ANTIGEN,FIA Negative (Negative)
[2024-12-17] MEDS ORDERED: ZOLPIDEM TARTRATE 10 MG TABLET PO PRN (01:15)
[2024-12-17] MEDS: POTASSIUM CHLORIDE 20 MEQ ER TABLET PO ONE (02:23)
[2024-12-17 03:54] VITALS: O2SAT 99
[2024-12-17 05:05] VITALS: BP 123/73; PULSE 64; RESP 18; TEMP 98.2; O2SAT 97
[2024-12-17] MEDS: BACITRACIN 28 GM OINTMENT TP SCH (08:07)
[2024-12-17 08:31] VITALS: BP 119/72; PULSE 79; RESP 18; TEMP 97.7; O2SAT 98
[2024-12-17] MEDS ORDERED: ACETAMINOPHEN 325 MG TABLET PO PRN (11:00)
[2024-12-17] MEDS ORDERED: DOCUSATE SODIUM 100 MG CAPSULE PO PRN (11:00)
[2024-12-17] MEDS ORDERED: NICOTINE 14 MG/24 HOUR PATCH TD PRN (11:00)
[2024-12-17] MEDS ORDERED: ALBUTEROL SULFATE HFA 90 MCG/PUFF 8 GM INHALER IH PRN (11:00)
[2024-12-17] MEDS ORDERED: MAG HYDROX/ALUMINUM HYD/SIMETH ES 30 ML SUSPENSION UDCUP PO PRN (11:00)
[2024-12-17] MEDS ORDERED: ONDANSETRON 4 MG TABLET PO PRN (11:00)
[2024-12-17] MEDS ORDERED: PETROLATUM,WHITE 28 GM JELLY TP PRN (11:00)
[2024-12-17] MEDS ORDERED: LOPERAMIDE HCL 2 MG CAPSULE PO PRN (11:00)
[2024-12-17] MEDS ORDERED: MAGNESIUM HYDROXIDE SUSPENSION 30 ML UDCUP PO PRN (11:00)
[2024-12-17] MEDS ORDERED: GuaiFENesin/D-METHORPHAN [SUGAR-FREE] 200-20MG/10 ML SYRUP UDCUP PO PRN (11:00)
[2024-12-17 20:27] VITALS: BP 107/82; PULSE 136; PULSE 82; RESP 18; TEMP 95.6; O2SAT 98
[2024-12-18 08:10] VITALS: BP 110/70; PULSE 89; RESP 18; TEMP 97.8; O2SAT 97
[2024-12-18] MEDS: BENZTROPINE MESYLATE 1 MG TABLET PO SCH (17:37)
[2024-12-18 20:00] VITALS: RESP 18
[2024-12-19 08:10] VITALS: BP 117/76; PULSE 94; RESP 18; TEMP 97.8; O2SAT 98
[2024-12-19 08:18] LABS: PLATELET COUNT (AUTO) 277 K/uL (150-450); RED BLOOD CELL COUNT(AUTO) 5.40 MIL/uL (4.50-5.90); RED CELL DISTRIBUTION WIDTH 13.3 % (11.5-14.5); WHITE BLOOD COUNT (AUTO) 6.9 K/uL (4.5-11.0)
[2024-12-19 08:49] LABS: ASPARTATE AMINOTRANSFERASE 36 U/L (15-37); CALCIUM, TOTAL 8.7 mg/dL (8.8-10.5); CHOL/HDL RATIO 4.1 (4.2-7.3); CREATININE 0.82 mg/dL (0.60-1.30); GLOMERULAR FILTR. RATE CALC > 60 mL/min (>60); GLUCOSE,RANDOM 89 mg/dL (70-110); LDL CHOL (CALC.) 97 mg/dL (0-130); SODIUM SERUM 138 mmol/L (136-145); TOTAL PROTEIN, SERUM 7.2 g/dL (6.4-8.2); UREA NITROGEN, BLOOD 20 mg/dL (7-18)
[2024-12-19 20:32] VITALS: RESP 18
[2024-12-20 08:45] VITALS: BP 116/72; PULSE 82; RESP 16; TEMP 97.3; O2SAT 94
[2024-12-20 20:19] VITALS: BP 120/90; PULSE 91; RESP 17; TEMP 97.3; O2SAT 96
[2024-12-21 08:20] VITALS: BP 100/61; PULSE 70; RESP 16; TEMP 97.6; O2SAT 98
[2024-12-21] MEDS ORDERED: LORazepam 2 MG/ML VIAL ONE (10:13)
[2024-12-21] MEDS: LORazepam 2 MG/ML VIAL IM ONE (10:55)
[2024-12-21 20:29] VITALS: RESP 17
[2024-12-22 09:17] VITALS: BP 108/77; PULSE 85; RESP 17; TEMP 97.9; O2SAT 99
[2024-12-22 20:33] VITALS: RESP 17
[2024-12-23 08:24] VITALS: BP 110/57; PULSE 61; RESP 18; TEMP 97; O2SAT 97
[2024-12-23] MEDS: IBUPROFEN 400 MG TABLET PO PRN (15:14)
[2024-12-23] MEDS: BENZTROPINE MESYLATE 1 MG TABLET PO ONE (15:43)
[2024-12-23 20:26] VITALS: BP 125/84; PULSE 70; RESP 17; TEMP 97.4; O2SAT 99
[2024-12-24 08:20] VITALS: BP 108/61; PULSE 64; RESP 18; TEMP 97.5; O2SAT 99
[2024-12-24 20:36] VITALS: BP 131/82; PULSE 70; RESP 18; TEMP 97.5; O2SAT 98
[2024-12-25 08:15] VITALS: BP 108/69; PULSE 93; RESP 18; TEMP 97.5; O2SAT 99
[2024-12-25 21:21] VITALS: BP 121/70; PULSE 68; RESP 18; TEMP 97.7; O2SAT 98
[2024-12-26 08:28] VITALS: BP 105/67; PULSE 80; RESP 18; TEMP 97.7; O2SAT 99
[2024-12-26 20:17] VITALS: BP 111/82; PULSE 88; RESP 18; TEMP 97.2; O2SAT 99
[2024-12-27 09:00] VITALS: BP 112/76; PULSE 86; RESP 17; TEMP 98.2; O2SAT 98
[2024-12-27 19:52] VITALS: BP 116/67; PULSE 70; RESP 18; TEMP 98.6; O2SAT 98
[2024-12-27 20:00] VITALS: BP 116/67; PULSE 70; RESP 18; TEMP 98.6; O2SAT 98
[2024-12-28 08:35] VITALS: BP 116/60; PULSE 60; RESP 18; TEMP 97.8; O2SAT 98
[2024-12-28 20:54] VITALS: RESP 18
[2024-12-29] MEDS ORDERED: BENZ-247 PO (10:23)
[2024-12-29] MEDS ORDERED: ARIP15TA27 PO (10:23)
[2024-12-29 11:16] VITALS: BP 123/72; PULSE 85; RESP 17; TEMP 97.3; O2SAT 98
== END 2024-12-29 11:40 | disposition home or self-care (01) | DRG 750 ==
LOC: EMS 21:50 → B3A 12-17 03:06
PROVIDERS: ADMIT Psychiatry & Neurology Psychiatry; ATTEND Psychiatry & Neurology Psychiatry
PROC: GZ56ZZZ Individual Psychotherapy, Supportive (ICD-10-PCS; 2024-12-17)
PROC: GZ58ZZZ Individual Psychotherapy, Cognitive-Behavioral (ICD-10-PCS; 2024-12-17)
PROC: GZ52ZZZ Individual Psychotherapy, Cognitive (ICD-10-PCS; 2024-12-19)
PROC: GZHZZZZ Group Psychotherapy (ICD-10-PCS; principal; 2024-12-20)
DX: F20.9 Schizophrenia, unspecified (principal); R45.851 Suicidal ideations; E11.65 Type 2 diabetes mellitus with hyperglycemia; E87.6 Hypokalemia; F15.10 Other stimulant abuse, uncomplicated; F10.10 Alcohol abuse, uncomplicated; Z20.822 Contact with and (suspected) exposure to COVID-19; E66.9 Obesity, unspecified; G47.00 Insomnia, unspecified; Z68.27 Body mass index [BMI] 27.0-27.9, adult; Z87.891 Personal history of nicotine dependence
CPT/HCPCS: 80048; 80053; 80061; 83036; 84436; 84443; 85025; G0480; J1200; J1630; J2060